=== PATIENT | male | born 1995 | race African-American/Black ===

== ENCOUNTER 2020-11-02 09:49 | Observation (INO) ==
[2020-11-02 10:39] LABS: Bilirubin,Urine Negative (Negative); Blood, Urine Negative (Negative); Glucose,Urine (UA) Negative (Negative); Ketones,Urine Negative (Negative); Mucus,Urine Occasional /LPF (Occasional); Nitrite,Urine Negative (Negative); Protein,Urine Negative; RBC,Urine 1 /HPF (0-4); Urine Appearance CLEAR (Clear); Urine Color Yellow (Yellow); Urine Specific Gravity 1.019 (1.001-1.035)
[2020-11-02] MEDS ORDERED: KETOROLAC 60 MG/2 ML VIAL IM STA (11:41)
[2020-11-02] MEDS ORDERED: ONDANSETRON 4 MG/2 ML VIAL IM STA (11:42)
[2020-11-02] MEDS ORDERED: ceFAZolin 2,000 MG in SODIUM CHLORIDE 0.9% 100 ML IV ONE (12:10)
[2020-11-02 12:25] LABS: Basophils % 0.2 % (0.0-0.8); Eosinophils % 0.2 % (0.00-10.9); Hematocrit 43.3 VOL% (42.0-52.0); Hemoglobin 14.4 GM/DL (14.0-18.0); Immature Granulocytes % 0.2 %; Immature Granulocytes Absolute 0.01 #; Lymphocytes # 1.1 10*3/uL (1.4-4.0); Lymphocytes % 19.7 % (21.2-54.2); Mean Corpuscular HGB Conc 33.3 GM/DL (32-36); Mean Corpuscular Volume 90.2 FL (87-102); Mean Platelet Volume 10.6 FL (9.6-12.0); Monocytes % 6.8 % (1.7-12.7); Neutrophils % 72.9 % (38.7-73.9); Platelet Count 212 T/CUMM (130-400); Red Cell Distribution Width 12.8 % (9.3-17.3); White Blood Count 5.6 T/CUMM (4-12)
[2020-11-02 12:48] LABS: Albumin 4.3 G/DL (3.4-5.0); Bilirubin,Total 0.4 MG/DL (0.20-1.00); Calcium 9.1 MG/DL (8.5-10.1); Osmolality,Calculated 267.1 MOS/KG (273-304); Potassium 3.8 MMOL/L (3.5-5.1); Total Protein 8.9 G/DL (6.4-8.2)
[2020-11-02] MEDS ORDERED: fentaNYL 100 MCG/2 ML VIAL ONE ×2 (12:52→13:26)
[2020-11-02] MEDS ORDERED: MIDAZOLAM 2 MG/2 ML VIAL ONE (12:52)
[2020-11-02] MEDS ORDERED: ROPIVACAINE 0.5% 30 ML VIAL ONE (12:54)
[2020-11-02 12:56] LABS: Beta HCG Titer < 1.00 mIU/ml (0-1)
[2020-11-02] MEDS ORDERED: SUCCINYLCHOLINE 200 MG/10 ML VIAL ONE (12:56)
[2020-11-02] MEDS ORDERED: ONDANSETRON 4 MG/2 ML VIAL IV PRN (12:57)
[2020-11-02] MEDS ORDERED: diphenhydrAMINE 50 MG/1 ML VIAL IV PRN (12:57)
[2020-11-02] MEDS ORDERED: MEPERIDINE 25 MG/1 ML VIAL IV PRN (12:57)
[2020-11-02] MEDS ORDERED: LIDOCAINE 2% 5 ML VIAL ONE (12:57)
[2020-11-02] MEDS ORDERED: PROMETHAZINE INJ 25 MG in SODIUM CHLORIDE 0.9% 50 ML IV PRN (12:57)
[2020-11-02] MEDS ORDERED: HYDROmorphone 2 MG/1 ML VIAL IV PRN ×2 (12:57→14:38)
[2020-11-02] MEDS ORDERED: propofoL 200 MG/20 ML VIAL IV ONE (12:57)
[2020-11-02] MEDS ORDERED: ROCURONIUM 50 MG/5 ML VIAL IV ONE (13:02)
[2020-11-02] MEDS ORDERED: ONDANSETRON 4 MG/2 ML VIAL ONE (13:02)
[2020-11-02] MEDS ORDERED: DEXAMETHASONE 4 MG/1 ML VIAL ONE (13:03)
[2020-11-02] MEDS ORDERED: SEVOFLURANE 1 UNIT/15 MINUTE INH ONE ×5 (13:40→14:49)
[2020-11-02] MEDS ORDERED: SUGAMMADEX 200 MG/2 ML VIAL IV ONE (14:01)
[2020-11-02] MEDS ORDERED: TISSUE ADHESIVE 1 EACH APPLICATOR TOP ONE (14:12)
[2020-11-02] MEDS ORDERED: ACETAMINOPHEN INJ 1,000 MG/100 ML VIAL IV ONE (14:20)
[2020-11-02] MEDS ORDERED: PROMETHAZINE 25 MG/1 ML VIAL IM PRN (14:38)
[2020-11-02] MEDS ORDERED: cefTRIAXone 1,000 MG in SODIUM CHLORIDE 0.9% 100 ML IV SCH (15:00)
[2020-11-02] MEDS: ACETAMINOPHEN 325 MG TABLET PO SCH ×2 (18:53→21:44)
[2020-11-02] MEDS: SODIUM CHLORIDE 0.9% 1,000 ML IV SCH (19:00)
[2020-11-02] MEDS: ONDANSETRON 4 MG/2 ML VIAL IV PRN (21:43)
[2020-11-02] MEDS: oxyCODONE/ACETAMINOPHEN 5-325 MG TABLET PO PRN (21:43)
[2020-11-02] MEDS: DOCUSATE SODIUM 100 MG CAPSULE PO SCH (21:44)
[2020-11-03] MEDS: SODIUM CHLORIDE 0.9% 1,000 ML IV SCH (02:45)
[2020-11-03] MEDS: ACETAMINOPHEN 325 MG TABLET PO SCH ×2 (02:46→08:51)
[2020-11-03] MEDS: ONDANSETRON 4 MG/2 ML VIAL IV PRN (02:47)
[2020-11-03 05:34] LABS: Basophils % 0.1 % (0.0-0.8); Eosinophils % 0.1 % (0.00-10.9); Hematocrit 37.4 VOL% (42.0-52.0); Hemoglobin 12.6 GM/DL (14.0-18.0); Immature Granulocytes % 0.3 %; Immature Granulocytes Absolute 0.02 #; Lymphocytes # 1.7 10*3/uL (1.4-4.0); Lymphocytes % 25.1 % (21.2-54.2); Mean Corpuscular HGB Conc 33.7 GM/DL (32-36); Mean Corpuscular Volume 91.7 FL (87-102); Mean Platelet Volume 10.7 FL (9.6-12.0); Monocytes % 11.5 % (1.7-12.7); Neutrophils % 62.9 % (38.7-73.9); Platelet Count 195 T/CUMM (130-400); Red Blood Count 4.08 MC/CUMM (3.8-5.5); White Blood Count 6.7 T/CUMM (4-12)
[2020-11-03 06:04] LABS: Calcium 8.1 MG/DL (8.5-10.1); Osmolality,Calculated 276.4 MOS/KG (273-304); Potassium 3.8 MMOL/L (3.5-5.1)
[2020-11-03 07:57] VITALS: BP 105/63
[2020-11-03] MEDS: oxyCODONE/ACETAMINOPHEN 5-325 MG TABLET PO PRN (08:51)
[2020-11-03] MEDS: DOCUSATE SODIUM 100 MG CAPSULE PO SCH (08:51)
== END 2020-11-03 10:16 | disposition home or self-care (01) ==
LOC: N.EDINP 09:49 → N.ED 09:49 → N.3E 13:14
PROVIDERS: ADMIT Surgery; ATTEND Surgery